=== PATIENT | female | born 1995 | race Hispanic/Latino ===

== ENCOUNTER → 2025-03-14 08:21 | Outpatient (REF) | payer BC, SELFPAY | LOC: WDC 08:21 | PROVIDERS: ATTENDING PHYSICIAN Obstetrics & Gynecology | DX: N63.11 Unspecified lump in the right breast, upper outer quadrant (principal) | CPT/HCPCS: 76642 ==

== ENCOUNTER 2025-04-23 02:50 | Inpatient (IN) | payer BC, SELFPAY ==
[2025-04-23 03:05] VITALS: BMI 29.6
[2025-04-23 03:08] VITALS: BP 114/64
[2025-04-23] MEDS: LR 1000 IV ×5 (03:20→21:54)
[2025-04-23] MEDS: PENICILLIN 110 UNITS IV (03:21)
[2025-04-23 03:26] LABS: Hematocrit 34.2 % (37.0-47.0); Hemoglobin 12.1 g/dL (12.0-16.0); Mean Corp Hgb Conc. 35.4 g/dL (33.0-37.0); Mean Corpuscular Volume 93.4 fL (81.0-99.0); Nucleated Red Blood Cells % 0 %; Platelet Count 201 10^3/uL (130-400); Red Cell Dist. Width 12.9 % (11.5-14.5)
[2025-04-23] MEDS: PENICILLIN 55 UNITS IV ×4 (08:06→20:04)
[2025-04-23] MEDS: STADOL 1 MG IV (09:42)
[2025-04-23] MEDS: SUBLIMAZE 100 MCG EPIDURAL (13:39)
[2025-04-23] MEDS: FENTANYL/BUPIVACAINE 100 EPIDURAL ×2 (13:39→21:52)
[2025-04-24] MEDS: PENICILLIN 55 UNITS IV (00:22)
[2025-04-24] MEDS: PITOCIN 30 UNITS/NSS 500 ML IV (00:24)
--- NOTE | 2025-04-24 02:48 | DOWNTIME ---
There was a [employer] Client [employer] Downtime on 04/24/2025 from 0100 to 04/24/2025 at 0235. Downtime documentation of patient's care, including medication administrations, has been reconciled in the electronic record per guidelines. Refer to the
patient's paper chart under the miscellaneous tab to see printed paper medication records and downtime forms.
[2025-04-24] MEDS: TYLENOL 650 MG PO (04:19)
[2025-04-24] MEDS: MOTRIN 600 MG PO ×3 (05:01→20:54)
[2025-04-24] MEDS: PRENATAL PLUS 1 TABLET PO (08:12)
[2025-04-24] MEDS: COLACE 100 MG PO ×2 (08:12→20:37)
[2025-04-25 05:13] LABS: Hematocrit 31.9 % (37.0-47.0); Hemoglobin 10.9 g/dL (12.0-16.0)
[2025-04-25] MEDS: COLACE 100 MG PO ×2 (07:47→20:03)
[2025-04-25] MEDS: PRENATAL PLUS 1 TABLET PO (07:47)
[2025-04-25] MEDS: MOTRIN 600 MG PO ×3 (09:38→23:55)
[2025-04-26] MEDS: PRENATAL PLUS 1 TABLET PO (08:43)
[2025-04-26] MEDS: MOTRIN 600 MG PO (08:43)
[2025-04-26] MEDS: COLACE 100 MG PO (08:43)
[2025-04-26 12:51] LABS: Syphilis/T. pallidum Ab Reflex Negative (Negative)
== END 2025-04-26 11:40 | disposition home or self-care (01) | DRG 807 ==
LOC: LDRP 02:50
PROVIDERS: Obstetrics & Gynecology; ADMITTING PHYSICIAN Obstetrics & Gynecology
PROC: 10907ZC Drainage of Amniotic Fluid, Therapeutic from Products of Conception, Via Natural or Artificial Opening (ICD-10-PCS; 2025-04-23)
PROC: 10E0XZZ Delivery of Products of Conception, External Approach (ICD-10-PCS; 2025-04-24)
PROC: 0KQM0ZZ Repair Perineum Muscle, Open Approach (ICD-10-PCS; 2025-04-24)
DX: O48.0 Post-term pregnancy (principal); Z37.0 Single live birth; Z3A.40 40 weeks gestation of pregnancy; O70.1 Second degree perineal laceration during delivery; O99.824 Streptococcus B carrier state complicating childbirth; B08.1 Molluscum contagiosum; O77.0 Labor and delivery complicated by meconium in amniotic fluid; Z28.310 Unvaccinated for COVID-19; Z83.3 Family history of diabetes mellitus; Z80.3 Family history of malignant neoplasm of breast
CPT/HCPCS: 36415; 85014; 85018; 85025; 86780; 86850; 86900; 86901; 88307

== ENCOUNTER → 2025-05-22 09:02 | Outpatient (REF) | payer BC, SELFPAY | LOC: WDC 09:02 | PROVIDERS: ATTENDING PHYSICIAN Obstetrics & Gynecology | DX: N63.25 Unspecified lump in the left breast, overlapping quadrants (principal) | CPT/HCPCS: 76642 ==